=== PATIENT | female | born 1990 | race Caucasian/White ===

== ENCOUNTER 2020-09-20 14:28 | Emergency (ER) | payer OTHER, SELFPAY ==
--- NOTE | 2020-09-20 16:33 | ER ---
Nurse's Notes [facility] Name: Lurdes Hernandez Age: 29 yrs Sex: Female : 1990 Arrival Date: 09/20/2020 Time: 14:32 Bed 27 Private MD: Diagnosis: Acute pharyngitis Presentation: 09/20 14:46 Chief complaint: Patient states: N/V and sore throat started today. Child is also sick ll1 with throat infection right now. No known fever. Coronavirus screen: Client denies travel out of the [place] in the last 14 days. fatigue, nausea, shaking with chills, sore throat, vomiting. Client presents with at least one sign or symptom that may indicate coronavirus-19. Standard/surgical mask placed on the client. Ebola Screen: Patient denies travel to an Ebola-affected area in the 21 days before illness onset. Initial Sepsis Screen: Does the patient meet any 2 criteria? No. Patient's initial sepsis screen is negative. Does the patient have a suspected source of infection? Yes: Other: sore throat. Risk Assessment: Do you want to hurt yourself or someone else? Patient reports no desire to harm self or others. Onset of symptoms was September 20, 2020. 14:46 Method Of Arrival: Ambulatory 1 14:46 Acuity: STERLING 3 ll1 Historical: - Allergies: 14:46 No Known Allergies; ll1 - PMHx: 14:46 None; ll1 - PSHx: 14:46 Tubal ligation; ll1 - Immunization history:: Flu vaccine is up to date. - Social history:: Smoking status: Patient reports the use of cigarette tobacco products, smokes one-half pack cigarettes per day. Screenin:51 Abuse screen: Denies threats or abuse. Denies injuries from another. Nutritional ss screening: No deficits noted. Tuberculosis screening: Never had TB. Fall Risk None identified. Assessment: 16:30 General: Appears in no apparent distress. comfortable, Behavior is calm, cooperative, ss Denies fever, feeling ill, fatigue, chills. Pain: Complains of pain in throat. Neuro: Level of Consciousness is awake, alert, obeys commands, Oriented to person, place, time, situation, Hygiene Assistant are equal bilaterally Speech is normal. Respiratory: Airway is patent Trachea deviated to right Respiratory effort is even, unlabored, Respiratory pattern is regular, symmetrical. GI: Patient currently denies diarrhea, nausea, vomiting. GI: Abdomen is non-distended. EENT: Oral mucosa is moist. Throat is clear. Derm: Skin is intact, is healthy with good turgor, Skin is dry, Skin is pink, warm \T\ dry. normal. Musculoskeletal: Circulation, motion, and sensation intact. Range of motion: intact in all extremities, Swelling absent. 17:04 Reassessment: Patient appears in no apparent distress at this time. Patient and/or ss family updated on plan of care and expected duration. Pain level reassessed. Patient is alert, oriented x 3, equal unlabored respirations, skin warm/dry/pink. Vital Signs: 14:46 BP 116 / 73; Pulse 77; Resp 17; Temp 98.3; Pulse Ox 97% ; Weight 72.57 kg; Height 5 ft. ll1 2 in. (157.48 cm); Pain 4/10; 16:15 BP 102 / 75 LA Sitting (auto/reg); Pulse 81; Pulse Ox 98% on R/A; Pain 4/10; jp3 14:46 Body Mass Index 29.26 (72.57 kg, 157.48 cm) ll1 ED Course: 14:32 Patient arrived in ED. mr 14:45 Arm band placed on. ll1 14:48 Triage completed. ll1 15:52 Strep Sent. ll1 16:05 Jamir Peterson PA is PHCP. [facility] 16:05 Agapito Morrison MD is Attending Physician. [facility] 16:41 Reyna Guillermo RN is Primary Nurse. ss 16:51 Patient has correct armband on for positive identification. Bed in low position. Call ss light in reach. 16:51 No provider procedures requiring assistance completed. Patient did not have IV access ss during this emergency room visit. Administered Medications: 16:51 Drug: Decadron (dexamethasone) 10 mg Route: IM; Site: right gluteus; ss 17:07 Follow up: Response: No adverse reaction; Medication administered at discharge. ss Outcome: 16:30 Discharged to home ambulatory. ss 16:30 Condition: good 16:30 Discharge instructions given to patient, Instructed on discharge instructions, follow up and referral plans. medication usage, Demonstrated understanding of instructions, follow-up care, medications, Prescriptions given X 1. 16:32 Discharge ordered by MD. barillas 17:07 Patient left the ED. Signatures: Jmair Peterson PA PA jmm Rivera, Mary mr Smirch, Shelby, RN RN Osiel Amaya jp3 Raman Ocasio RN RN ll1
--- NOTE | 2020-09-20 16:33 | EDPHYS ---
Physician Documentation [facility] Name: Lurdes Hernandez Age: 29 yrs Sex: Female : 1990 Arrival Date: 09/20/2020 Time: 14:32 Bed 27 Private MD: ED Physician Agapito Morrison HPI: 09/20 14:49 This 29 yrs old Female presents to ER via Ambulatory with complaints of jmm Vomiting, Sore Throat. 14:49 The patient presents to the emergency department with nausea, vomiting. Onset: The jmm symptoms/episode began/occurred gradually. Possible causes: unknown. The symptoms are aggravated by nothing. The symptoms are alleviated by nothing. Associated signs and symptoms: Pertinent positives: vomiting. This is a 29 year old female with no chronic medical conditions that presents to the ED with complaints of sore throat with vomiting. Denies fever, sob, abdominal pain. Patient states her daughter has similar symptoms. . Historical: - Allergies: 14:46 No Known Allergies; ll1 - PMHx: 14:46 None; ll1 - PSHx: 14:46 Tubal ligation; ll1 - Immunization history:: Flu vaccine is up to date. - Social history:: Smoking status: Patient reports the use of cigarette tobacco products, smokes one-half pack cigarettes per day. ROS: 14:49 Constitutional: Negative for fever, chills, and weight loss, Cardiovascular: Negative jmm for chest pain, palpitations, and edema, Respiratory: Negative for shortness of breath, cough, wheezing, and pleuritic chest pain. 14:49 ENT: Positive for sore throat. 14:49 Abdomen/GI: Positive for vomiting. 14:49 All other systems are negative. Exam: 14:49 Constitutional: This is a well developed, well nourished patient who is awake, alert, jmm and in no acute distress. Head/Face: atraumatic. Eyes: EOMI, no conjunctival erythema appreciated ENT: Moist Mucus Membranes Neck: Trachea midline, Supple Chest/axilla: Normal chest wall appearance and motion. Cardiovascular: Regular rate and rhythm. No edema appreciated Respiratory: Normal respirations, no respiratory distress appreciated Abdomen/GI: Non distended, soft Back: Normal ROM Skin: General appearance color normal MS/ Extremity: Moves all extremities, no obvious deformities appreciated, no edema noted to the lower extremities Neuro: Awake and alert, normal gait Psych: Behavior is normal, Mood is normal, Patient is cooperative and pleasant 14:49 ENT: Posterior pharynx: Airway: normal, Uvula: midline, erythema, that is mild. Vital Signs: 14:46 BP 116 / 73; Pulse 77; Resp 17; Temp 98.3; Pulse Ox 97% ; Weight 72.57 kg; Height 5 ft. ll1 2 in. (157.48 cm); Pain 4/10; 16:15 BP 102 / 75 LA Sitting (auto/reg); Pulse 81; Pulse Ox 98% on R/A; Pain 4/10; jp3 14:46 Body Mass Index 29.26 (72.57 kg, 157.48 cm) ll1 MDM: 16:19 Patient medically screened. [facility] 16:32 Data reviewed: vital signs, nurses notes. Counseling: I had a detailed discussion with eran the patient and/or guardian regarding: the historical points, exam findings, and any diagnostic results supporting the discharge/admit diagnosis, lab results, the need for outpatient follow up, to return to the emergency department if symptoms worsen or persist or if there are any questions or concerns that arise at home. 09/20 14:48 Order name: Strep kb 09/20 14:49 Order name: Group A Streptococcus Rapid Sc; Complete Time: 16:06 EDMO 09/20 16:05 Order name: Throat Culture EDMS Administered Medications: 16:51 Drug: Decadron (dexamethasone) 10 mg Route: IM; Site: right gluteus; ss 17:07 Follow up: Response: No adverse reaction; Medication administered at discharge. Disposition: 09/21 06:48 Co-signature as Attending Physician, Agapito Morrison MD I agree with the assessment and kdr plan of care. Disposition: 09/20/20 16:32 Discharged to Home. Impression: Acute pharyngitis. - Condition is Stable. - Discharge Instructions: Nausea and Vomiting, Adult, Pharyngitis. - Prescriptions for Zofran ODT 4 mg Oral tablet,disintegrating - place 1 tablet by TRANSLINGUAL route every 4-6 hours; 20 tablet. - Medication Reconciliation Form, Thank You Letter, Antibiotic Education, Prescription Opioid Use form. - Follow up: Private Physician; When: 2 - 3 days; Reason: Recheck today's complaints, Continuance of care, Re-evaluation by your physician. Signatures: Dispatcher [employer] EDMS Agapito Morrison MD MD kdr Mickail, Joel, PA PA jmm Smirch, Shelby, RN RN ss Raman Ocasio RN RN ll1 Corrections: (The following items were deleted from the chart) 09/20 17:07 16:32 09/20/2020 16:32 Discharged to Home. Impression: Acute pharyngitis. Condition is ss Stable. Forms are Medication Reconciliation Form, Thank You Letter, Antibiotic Education, Prescription Opioid Use. Follow up: Private Physician; When: 2 - 3 days; Reason: Recheck today's complaints, Continuance of care, Re-evaluation by your physician. eran
[2020-09-20] MEDS ORDERED: dexAMETHasone 10 MG/ML VIAL ONE (17:06)
[2020-09-20 17:13] VITALS: TEMP 98.3
[2020-09-20 17:14] VITALS: BP 102/75; O2SAT 98
== END 2020-09-20 17:07 | disposition home or self-care (01) ==
LOC: ER 14:28
DX: J02.9 Acute pharyngitis, unspecified (principal); F17.210 Nicotine dependence, cigarettes, uncomplicated
CPT/HCPCS: 87070; 87081; 96372; 99283; J1100

== ENCOUNTER 2020-10-15 08:09 | Emergency (ER) | payer SELFPAY ==
--- OUTSIDE RECORDS SUMMARY | 2020-10-15 08:11 | XMS REPORT | Continuity of Care Document ---
:1990 Author Organization [facility] t Address [address] [place] [address] Care Team Providers Name Role Phone Sushma REID Attending Clinician Problems This patient has no known problems. Allergies, Adverse Reactions, Alerts This patient has no known allergies or adverse reactions. Medications This patient has no known medications. Procedures This patient has no known procedures. Encounters Start End Encounter Admission Attending Care Care Encounter Source Date/Time Date/Time Type Type Clinicians Facility Department ID 2020-08-30 2020-08-30 Telephone OSMIN Ordaz [id number] 00:00:00 00:00:00 Ольга Trujillo [id number] Wendi [id number] Brett [id number] [facility] [address] [facility] Results This patient has no known results.
[2020-10-15 09:37] LABS: Urine Blood Trace-lysed (Negative); Urine Glucose Negative (Negative); Urine Protein Negative (Negative); Urine Specific Gravity >=1.030 (1.005-1.030)
[2020-10-15 10:12] LABS: Absolute Lymphocytes (CBC) 0.8 K/uL (0.7-4.9); Basophils % 0.6 % (0-1.3); Hematocrit 34.9 % (36.0-45.0); Lymphocytes % 19.6 % (15.3-44.8); MPV 8.4 fL (7.6-11.3); RBC Red Blood Cell Count 4.41 M/uL (3.86-4.86)
[2020-10-15 10:22] LABS: Urine Bacteria <20 /HPF (<20); Urine RBC <5 /HPF (NONE SEEN)
[2020-10-15 10:24] LABS: Urine Specific Gravity/Preg >1.030 (1.005-1.030)
[2020-10-15] MEDS ORDERED: NA CHLORIDE 0.9% 1,000 ML ONE (10:24)
--- NOTE | 2020-10-15 10:28 | RAD REPORT ---
EXAM DESCRIPTION: CT - Abdomen Pelvis W Contrast - 10/15/2020 10:14 am CLINICAL HISTORY: dysuria;Flank pain COMPARISON: No comparisons TECHNIQUE: Biphasic, helical CT imaging of the abdomen and pelvis was performed following 100 ml non -ionic IV contrast. No oral contrast administered. All CT scans are performed using dose optimization technique as appropriate and may include automated exposure control or mA/KV adjustment according to patient size. FINDINGS: No suspicious findings in the lung bases. The liver, spleen, and pancreas show no suspicious findings. Gallbladder and biliary tree are also wi thout suspicious finding. Symmetric renal function is seen with no hydronephrosis or suspicious renal mass. No pyelonephritis o r acute parenchymal process. Urinary bladder is mostly contracted. No gross evidence for cystitis. No bladder stone or intraluminal abnormality seen. No adrenal abnormalities. No uterine abnormality. Both ovaries are well visualized and show no suspicious findings. There is pr obably a small involuting follicle in the right ovary less than a centimeter. No dilated bowel loops or bowel wall thickening. Appendix is normal. No free air or pneumatosis. No a bnormal free fluid or suspicious inflammatory stranding. No mass or bulky lymphadenopathy. A very sm all fat only umbilical hernia present. No suspicious bony findings. IMPRESSION: Contrast enhanced CT abdomen and pelvis showing no acute or emergent finding. Nonacute findings detailed in the body of the report.
[2020-10-15 10:40] LABS: ALT/SGPT 29 U/L (12-78); AST/SGOT 18 U/L (15-37); Albumin 3.8 g/dL (3.4-5.0); Alkaline Phosphatase 92 U/L (45-117); BUN Blood Urea Nitrogen 13 mg/dL (7-18); Bicarbonate 25 mmol/L (21-32); Bilirubin Direct 0.1 mg/dL (0-0.2); Bilirubin Total 0.3 mg/dL (0.2-1.0); Glucose Level 89 mg/dL (74-106); Lipase 104 U/L (73-393); Potassium 3.9 mmol/L (3.5-5.1); Protein, Total 7.5 g/dL (6.4-8.2); Sodium Level 140 mmol/L (136-145)
--- NOTE | 2020-10-15 10:54 | EDPHYS ---
Physician Documentation [facility] Name: Lurdes Hernandez Age: 29 yrs Sex: Female : 1990 Arrival Date: 10/15/2020 Time: 08:19 Bed 14 Private MD: ED Physician Theo Hirsch HPI: 10/15 10:00 This 29 yrs old Female presents to ER via Ambulatory with complaints of pm1 Fever, Urinary Problem. 10:00 The patient presents with urinary symptoms, dysuria. Onset: The symptoms/episode pm1 began/occurred yesterday. Modifying factors: The symptoms are alleviated by nothing, the symptoms are aggravated by urinating. Associated signs and symptoms: Pertinent positives: fever, Pertinent negatives: abdominal pain, flank pain. Severity of symptoms: in the emergency department the symptoms are unchanged. The patient has not experienced similar symptoms in the past. The patient has not recently seen a physician. 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 - Social history:: Smoking status: Patient reports the use of cigarette tobacco products, denies chronic smoking, but will smoke occasionally. ROS: 10:00 Positive for burning with urination, Negative for pelvic pain, flank pain. pm1 10:00 Constitutional: Negative for fever, chills, and weight loss, Eyes: Negative for injury, pain, redness, and discharge, ENT: Negative for injury, pain, and discharge, Cardiovascular: Negative for chest pain, palpitations, and edema, Respiratory: Negative for shortness of breath, cough, wheezing, and pleuritic chest pain, Abdomen/GI: Negative for abdominal pain, nausea, vomiting, diarrhea, and constipation, Back: Negative for injury and pain, MS/Extremity: Negative for injury and deformity, Skin: Negative for injury, rash, and discoloration, Neuro: Negative for headache, weakness, numbness, tingling, and seizure. Exam: 10:00 Constitutional: This is a well developed, well nourished patient who is awake, alert, pm1 and in no acute distress. Head/Face: Normocephalic, atraumatic. 10:00 Eyes: Pupils equal round and reactive to light, extra-ocular motions intact. Lids and lashes normal. Conjunctiva and sclera are non-icteric and not injected. Cornea within normal limits. Periorbital areas with no swelling, redness, or edema. 10:00 Back: No spinal tenderness. No costovertebral tenderness. Full range of motion. 10:00 Skin: Warm, dry with normal turgor. Normal color with no rashes, no lesions, and no evidence of cellulitis. MS/ Extremity: Pulses equal, no cyanosis. Neurovascular intact. Full, normal range of motion. 10:00 ENT: Mouth: Lips: normal, moist, Oral mucosa: normal, pink and intact, moist. 10:00 Cardiovascular: Exam negative for acute changes, Rate: normal, Rhythm: regular, Pulses: no pulse deficits are appreciated. 10:00 Respiratory: Exam negative for acute changes, respiratory distress, shortness of breath. 10:00 Abdomen/GI: Exam negative for acute changes, Inspection: abdomen appears normal, Palpation: abdomen is soft and non-tender, in all quadrants. 10:00 Back: Exam negative for acute changes, pain, is absent, CVA tenderness, is absent. 10:00 Neuro: Exam negative for acute changes, Orientation: is normal, Mentation: is normal, Motor: is normal, moves all fours. Vital Signs: 08:24 BP 106 / 70; Pulse 75; Resp 16 S; Temp 98.7(O); Pulse Ox 100% on R/A; Weight 70.76 kg jd3 (R); Height 5 ft. 2 in. (157.48 cm) (R); Pain 6/10; 09:30 BP 106 / 73; Pulse 78; Resp 20; Pulse Ox 100% on R/A; Pain 7/10; kg 10:00 BP 93 / 75; Pulse 82; Resp 18; Pulse Ox 100% on R/A; kg 11:00 BP 106 / 72; Pulse 77; Resp 18; Pulse Ox 100% on R/A; Pain 6/10; kg 08:24 Body Mass Index 28.53 (70.76 kg, 157.48 cm) jd3 MDM: 09:44 Patient medically screened. pm1 09:50 ED course: Patient refused pain medications. She is currently studying in the room. pm1 10:53 Data reviewed: vital signs. Data interpreted: Pulse oximetry: on room air is 100 %. pm1 Interpretation: normal. Counseling: I had a detailed discussion with the patient and/or guardian regarding: the historical points, exam findings, and any diagnostic results supporting the discharge/admit diagnosis, lab results, radiology results, the need for outpatient follow up, to return to the emergency department if symptoms worsen or persist or if there are any questions or concerns that arise at home. 10/15 09:37 Order name: Urine Dipstick-Ancillary; Complete Time: 09:43 EDMS 10/15 09:42 Order name: Urine --Ancillary (enter results); Complete Time: 10:40 bd 10/15 09:50 Order name: Urine Microscopic Only; Complete Time: 10:40 pm1 10/15 09:50 Order name: Basic Metabolic Panel; Complete Time: 10:50 pm1 10/15 09:50 Order name: CBC with Diff; Complete Time: 10:40 pm1 10/15 09:50 Order name: Hepatic Function; Complete Time: 10:50 pm1 10/15 09:50 Order name: Lipase; Complete Time: 10:50 pm1 10/15 09:50 Order name: IV Saline Lock pm1 10/15 09:50 Order name: Labs collected and sent; Complete Time: 10:01 pm1 10/15 09:50 Order name: CT Abd/Pelvis - IV Contrast Only; Complete Time: 10:40 pm1 10/15 10:24 Order name: Urine Culture EDMS Administered Medications: 10:09 Drug: NS 0.9% 1000 ml Route: IV; Rate: 1000 ml; Site: right antecubital; kg 11:35 Follow up: Response: No adverse reaction; IV Status: Completed infusion; IV Intake: kg 1000ml 12:02 Follow up: Response: No adverse reaction; IV Status: Completed infusion; IV Intake: kg 1000ml 11:34 Drug: TORadol (ketorolac) 30 mg Route: IVP; Site: right antecubital; kg 12:01 Follow up: Response: No adverse reaction; Marked relief of symptoms; Pain is decreased kg 11:35 Drug: Rocephin (cefTRIAXone) 1 grams Route: IV; Rate: calculated rate; Site: right kg antecubital; 12:02 Follow up: Response: No adverse reaction; IV Status: Completed infusion; IV Intake: 10mlkg Disposition: 15:58 Co-signature as Attending Physician, Theo Hirsch MD. rn Disposition: 10/15/20 10:53 Discharged to Home. Impression: Urinary tract infection, site not specified. - Condition is Stable. - Discharge Instructions: Urinary Tract Infection, Adult. - Prescriptions for Tramadol 50 mg Oral Tablet - take 1 tablet by ORAL route every 8 hours as needed; 12 tablet. Bactrim DS 800- 160 mg Oral Tablet - take 1 tablet by ORAL route every 12 hours for 10 days; 20 tablet. Pyridium 200 mg Oral Tablet - take 1 tablet by ORAL route every 8 hours for 3 days; 9 tablet. - Medication Reconciliation Form, Thank You Letter, Antibiotic Education, Prescription Opioid Use form. - Follow up: Emergency Department; When: As needed; Reason: Worsening of condition. Follow up: Private Physician; When: 2 - 3 days; Reason: Recheck today's complaints, Continuance of care, Re-evaluation by your physician. - Problem is new. - Symptoms have improved. Signatures: Dispatcher [employer] EDMS Theo Hirsch MD MD rn Marinas, Patrick, NAHEED CEMENT LOADER pm1 Esteban Keating RN RN jd3 Priscilla Sharma kg Corrections: (The following items were deleted from the chart) 12:02 10:53 10/15/2020 10:53 Discharged to Home. Impression: Urinary tract infection, site kg not specified. Condition is Stable. Forms are Medication Reconciliation Form, Thank You Letter, Antibiotic Education, Prescription Opioid Use. Follow up: Emergency Department; When: As needed; Reason: Worsening of condition. Follow up: Private Physician; When: 2 - 3 days; Reason: Recheck today's complaints, Continuance of care, Re-evaluation by your physician. Problem is new. Symptoms have improved. pm1
--- NOTE | 2020-10-15 10:54 | ER ---
Nurse's Notes [facility] Name: Lurdes Hernandez Age: 29 yrs Sex: Female : 1990 Arrival Date: 10/15/2020 Time: 08:19 Bed 14 Private MD: Diagnosis: Urinary tract infection, site not specified Presentation: 10/15 08:22 Chief complaint: Patient states: "I have been having a fever for the last couple of jd3 days. I think I might have a kidney infection because it hurts to use the restroom.". Coronavirus screen: At this time, the client does not indicate any symptoms associated with coronavirus-19. Ebola Screen: Patient negative for fever greater than or equal to 101.5 degrees Fahrenheit, and additional compatible Ebola Virus Disease symptoms. Initial Sepsis Screen: Does the patient meet any 2 criteria? No. Patient's initial sepsis screen is negative. Does the patient have a suspected source of infection? No. Patient's initial sepsis screen is negative. Risk Assessment: Do you want to hurt yourself or someone else? Patient reports no desire to harm self or others. Onset of symptoms was October 14, 2020. 08:22 Method Of Arrival: Ambulatory jd3 08:22 Acuity: STERLING 3 jd3 Triage Assessment: 09:28 General: Appears in no apparent distress. distressed, comfortable, Behavior is calm, kg cooperative, appropriate for age, quiet. 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 - Social history:: Smoking status: Patient reports the use of cigarette tobacco products, denies chronic smoking, but will smoke occasionally. Screenin:28 Abuse screen: Denies threats or abuse. Nutritional screening: No deficits noted. kg Tuberculosis screening: No symptoms or risk factors identified. Fall Risk None identified. Assessment: 10:10 General: Appears in no apparent distress. distressed, comfortable, Behavior is calm, kg cooperative, appropriate for age, quiet. Pain: Complains of pain in left low back, left mid back, right mid back and right low back Pain currently is 7 out of 10 on a pain scale. at worst was 8 out of 10 on a pain scale. level that patient reports is acceptable is 3 out of 10 on a pain scale. Quality of pain is described as sharp, stabbing, Pain began gradually, 1 day ago. Is intermittent. Neuro: No deficits noted. Level of Consciousness is awake, alert, obeys commands, Oriented to person, place, time, situation. Cardiovascular: No deficits noted. Heart tones S1 S2 Capillary refill < 3 seconds. Respiratory: No deficits noted. Airway is patent Breath sounds are clear bilaterally. GI: No deficits noted. : Reports burning with urination, pain flank(s), with urination, Pain is 7 out of 10 on a pain scale. urgency, urinary frequency, since yesterday. EENT: No deficits noted. Derm: No deficits noted. Musculoskeletal: No deficits noted. Vital Signs: 08:24 BP 106 / 70; Pulse 75; Resp 16 S; Temp 98.7(O); Pulse Ox 100% on R/A; Weight 70.76 kg jd3 (R); Height 5 ft. 2 in. (157.48 cm) (R); Pain 6/10; 09:30 BP 106 / 73; Pulse 78; Resp 20; Pulse Ox 100% on R/A; Pain 7/10; kg 10:00 BP 93 / 75; Pulse 82; Resp 18; Pulse Ox 100% on R/A; kg 11:00 BP 106 / 72; Pulse 77; Resp 18; Pulse Ox 100% on R/A; Pain 6/10; kg 08:24 Body Mass Index 28.53 (70.76 kg, 157.48 cm) jd3 ED Course: 08:19 Patient arrived in ED. as 08:24 Triage completed. jd3 08:27 Arm band placed on. jd3 09:27 Priscilla Sharma is Primary Nurse. kg 09:28 Patient has correct armband on for positive identification. Bed in low position. Call kg light in reach. Side rails up X 1. 09:31 Buzz Landers NP is PHCP. pm1 09:31 Theo Hirsch MD is Attending Physician. pm1 09:50 Inserted saline lock: 20 gauge in right antecubital area, using aseptic technique. kg Blood collected. 10:01 Basic Metabolic Panel Sent. kg 10:01 CBC with Diff Sent. kg 10:01 Lipase Sent. kg 10:14 CT Abd/Pelvis - IV Contrast Only In Process Unspecified. EDMS 11:24 Urine Culture Sent. kg 11:36 No provider procedures requiring assistance completed. IV discontinued, intact, kg bleeding controlled, No redness/swelling at site. Pressure dressing applied. Administered Medications: 10:09 Drug: NS 0.9% 1000 ml Route: IV; Rate: 1000 ml; Site: right antecubital; kg 11:35 Follow up: Response: No adverse reaction; IV Status: Completed infusion; IV Intake: kg 1000ml 12:02 Follow up: Response: No adverse reaction; IV Status: Completed infusion; IV Intake: kg 1000ml 11:34 Drug: TORadol (ketorolac) 30 mg Route: IVP; Site: right antecubital; kg 12:01 Follow up: Response: No adverse reaction; Marked relief of symptoms; Pain is decreased kg 11:35 Drug: Rocephin (cefTRIAXone) 1 grams Route: IV; Rate: calculated rate; Site: right kg antecubital; 12:02 Follow up: Response: No adverse reaction; IV Status: Completed infusion; IV Intake: 10mlkg Intake: 11:35 IV: 1000ml; Total: 1000ml. kg 12:02 IV: 10ml; Total: 1010ml. kg 12:02 IV: 1000ml; Total: 2010ml. kg Outcome: 10:53 Discharge ordered by MD. pm1 11:36 Discharged to home ambulatory. kg 11:36 Condition: good 11:36 Discharge instructions given to patient, Instructed on discharge instructions, follow up and referral plans. Demonstrated understanding of instructions, follow-up care, medications, Prescriptions given X 3. 12:02 Patient left the ED. kg Signatures: Dispatcher [employer] Neli Garcia Patrick, NAHEED INPATIENT PHARMACIST pm1 Esteban Keating RN RN Priscilla Garcia kg
[2020-10-15] MEDS ORDERED: KETOROLAC 30 MG/ML INJ ONE (11:46)
[2020-10-15] MEDS ORDERED: CEFTRIAXONE/SWI 1gm 1 GM/10 ML SYR ONE (11:46)
[2020-10-15 12:30] VITALS: TEMP 98.7; O2SAT 100
[2020-10-15 12:35] VITALS: BP 106/72
== END 2020-10-15 12:02 | disposition home or self-care (01) ==
LOC: ER 08:09
DX: N39.0 Urinary tract infection, site not specified (principal); F17.210 Nicotine dependence, cigarettes, uncomplicated
CPT/HCPCS: 36415; 74177; 80048; 80076; 81003; 81015; 81025; 82565; 83690; 85025; 87086; 87088; 96361; 96365; 96375; 99284; J0696; J7030; Q9967

== ENCOUNTER 2021-03-19 12:29 | Emergency (ER) | payer SELFPAY ==
[2021-03-19] MEDS ORDERED: CEFTRIAXONE 1000 MG/VIAL ONE (13:51)
[2021-03-19] MEDS ORDERED: NA CHLORIDE 0.9% 1,000 ML ONE (13:51)
[2021-03-19] MEDS ORDERED: NA CHLORIDE 0.9% 100 ML ONE (13:51)
[2021-03-19 14:07] LABS: Absolute Lymphocytes (CBC) 1.3 K/uL (0.7-4.9); Basophils % 0.4 % (0-1.3); Hematocrit 36.6 % (36.0-45.0); MPV 7.9 fL (7.6-11.3); RBC Red Blood Cell Count 4.52 M/uL (3.86-4.86)
[2021-03-19 14:18] LABS: ALT/SGPT 23 U/L (12-78); AST/SGOT 12 U/L (15-37); Albumin 3.8 g/dL (3.4-5.0); Alkaline Phosphatase 82 U/L (45-117); BUN Blood Urea Nitrogen 9 mg/dL (7-18); Bicarbonate 24 mmol/L (21-32); Bilirubin Direct < 0.1 mg/dL (0-0.2); Bilirubin Total 0.3 mg/dL (0.2-1.0); Glucose Level 112 mg/dL (74-106); Lipase 101 U/L (73-393); Potassium 3.5 mmol/L (3.5-5.1); Protein, Total 7.9 g/dL (6.4-8.2); Sodium Level 139 mmol/L (136-145)
[2021-03-19 14:30] LABS: Urine Specific Gravity/Preg 1.025 (1.005-1.030)
--- NOTE | 2021-03-19 16:35 | RAD REPORT ---
EXAM DESCRIPTION: CTChest Abdomen Pelvis W Cont - 03/19/2021 4:26 pm CLINICAL HISTORY: PAIN COMPARISON: No comparisons TECHNIQUE: CT of the chest, abdomen, and pelvis was performed. All CT scans are performed using dose optimization technique as appropriate and may include automated exposure control or mA/KV adjustment according to patient size. FINDINGS: Thorax: Chest Wall: No abnormal mass Lungs: No acute abnormality. Pleura: No effusions or pneumothorax. [place]/Mediastinum: No lymphadenopathy. Aorta/Pulmonary Arteries: Unremarkable Heart: Normal size. Abdomen/Pelvis: Liver: No acute abnormality or suspicious lesions. Biliary: No biliary ductal dilatation. Stomach: No significant focal abnormality. Duodenum: No significant focal abnormality. Pancreas: No significant abnormality. Spleen: No significant abnormality. Adrenal: No suspicious lesions. Kidney/ureter: No hydronephrosis. No renal calculi. Retroperitoneum: No retroperitoneal adenopathy. Vascular: No aneurysm. Bowel: No significant focal abnormality. Normal appendix. Peritoneum: No ascites or free air. Small fat containing umbilical hernia . Bladder: Grossly unremarkable. Reproductive: No adnexal masses. Bones: No acute fracture. Other: n/a IMPRESSION: No acute findings within the chest, abdomen, or pelvis.
--- NOTE | 2021-03-19 18:00 | ER ---
Nurse's Notes [facility] Name: Lurdes Hernandez Age: 30 yrs Sex: Female : 1990 Arrival Date: 03/19/2021 Time: 12:31 Bed 20 Private MD: Diagnosis: Fever, unspecified;UTI/ Urinary tract infection, site not specified Presentation: 03/19 12:36 Chief complaint: Patient states: Fever and NGUYỄN x 1 week. L flank pain that began today. ss Negative Covid test 4 days ago. Coronavirus screen: fever, headache, Client presents with at least one sign or symptom that may indicate coronavirus-19. Standard/surgical mask placed on the client. Provider contacted for isolation considerations. Ebola Screen: Patient denies exposure to infectious person. Patient denies travel to an Ebola-affected area in the 21 days before illness onset. Initial Sepsis Screen: Does the patient meet any 2 criteria? No. Patient's initial sepsis screen is negative. Does the patient have a suspected source of infection? No. Patient's initial sepsis screen is negative. Risk Assessment: Do you want to hurt yourself or someone else? Patient reports no desire to harm self or others. Onset of symptoms was March 12, 2021. 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 - Social history:: Smoking status: Patient denies any tobacco usage or history of. Screenin:40 Abuse screen: Denies threats or abuse. Nutritional screening: No deficits noted. ap3 Tuberculosis screening: No symptoms or risk factors identified. Fall Risk None identified. Assessment: 12:52 General: Appears in no apparent distress. Behavior is calm, cooperative, appropriate ap3 for age, Reports fever for > 3 days, feeling ill for > 3 days. Pain: Denies pain. Neuro: Level of Consciousness is awake, alert, obeys commands, Oriented to person, place, time, situation, Appropriate for age Moves all extremities. Gait is steady, Speech is normal. Cardiovascular: Capillary refill < 3 seconds Patient's skin is warm and dry. Respiratory: Airway is patent Respiratory effort is even, unlabored, Respiratory pattern is regular, symmetrical, Breath sounds are clear. GI:. GI: No signs and/or symptoms were reported involving the gastrointestinal system. : Reports pain in left flank(s), since this morning. 14:16 Reassessment: Patient and/or family updated on plan of care and expected duration. Pain ap3 level reassessed. Patient is alert, oriented x 3, equal unlabored respirations, skin warm/dry/pink. 16:18 Reassessment: Patient and/or family updated on plan of care and expected duration. Pain ap3 level reassessed. Patient is alert, oriented x 3, equal unlabored respirations, skin warm/dry/pink. Vital Signs: 12:36 BP 118 / 78; Pulse 128; Resp 16; Temp 100.4(TE); Pulse Ox 99% on R/A; Weight 72.12 kg; ss Height 5 ft. 2 in. (157.48 cm); Pain 8/10; 12:54 BP 99 / 67 LA (auto/lg); Pulse 107; Resp 19; Pulse Ox 100% on R/A; ap3 14:15 BP 96 / 63; Pulse 90; Pulse Ox 100% on R/A; ap3 14:50 BP 109 / 69; Pulse 93; Pulse Ox 100% on R/A; ap3 16:18 BP 105 / 88; Pulse 87; Temp 99.3; Pulse Ox 100% ; ap3 17:48 BP 101 / 72; Pulse 96; Pulse Ox 99% on R/A; ap3 12:36 Body Mass Index 29.08 (72.12 kg, 157.48 cm) ED Course: 12:31 Patient arrived in ED. as 12:38 Triage completed. ss 12:38 Arm band placed on left wrist. ss 12:39 Thalia Hernandez, VARGAS is Primary Nurse. ap3 12:40 Patient has correct armband on for positive identification. Bed in low position. Call ap3 light in reach. Side rails up X2. Pulse ox on. NIBP on. Door closed. Noise minimized. 12:47 Jamir Peterson PA is PHCP. [facility] 12:47 Agapito Morrison MD is Attending Physician. [facility] 13:45 Initial lab(s) drawn, by me, sent to lab. First set of blood cultures drawn. Inserted em1 saline lock: in right antecubital area, using aseptic technique. Blood collected. 13:45 Urine collected: clean catch specimen, clear. em1 14:00 Second set of blood cultures drawn by me. em1 14:21 SARS-COV-2 RT PCR Sent. em1 14:22 Urine Culture Sent. em1 16:26 Chest Abdomen Pelvis W Cont In Process Unspecified. EDMS 18:08 No provider procedures requiring assistance completed. IV discontinued, intact, ap3 bleeding controlled, No redness/swelling at site. Pressure dressing applied. Administered Medications: 14:15 Drug: NS 0.9% 1000 ml Route: IV; Rate: 1 bolus; Site: left antecubital; ap3 14:15 Drug: Rocephin (cefTRIAXone) 1 grams Route: IV; Rate: calculated rate; Site: left ap3 antecubital; Outcome: 17:59 Discharge ordered by . [facility] 18:08 Discharged to home ambulatory. ap3 18:08 Condition: good 18:08 Discharge instructions given to patient, Instructed on discharge instructions, follow up and referral plans. medication usage, Demonstrated understanding of instructions, follow-up care, medications, Prescriptions given X 2. 18:08 Patient left the ED. ap3 Signatures: Dispatcher [employer] EDMS Jamir Peterson PA PA jmm Martinez, Amelia as Martinez, Eric em1 Reyna Guillermo RN RN ss Prokisch, Amanda, RN RN ap3 Corrections: (The following items were deleted from the chart) 12:43 12:43 General: ap3 ap3 16:23 15:47 In radiology for Chest Abdomen Pelvis W Con+CT.RAD.BRZ. EDMS EDMS
--- NOTE | 2021-03-19 18:00 | EDPHYS ---
Physician Documentation [facility] Name: Lurdes Hernandez Age: 30 yrs Sex: Female : 1990 Arrival Date: 03/19/2021 Time: 12:31 Bed 20 Private MD: ED Physician Agapito Morrison HPI: 03/19 12:52 This 30 yrs old Female presents to ER via Ambulatory with complaints of Fever.jmm 12:52 Onset: The symptoms/episode began/occurred gradually. Modifying factors: there are no [facility] obvious modifying factors. Associated signs and symptoms: Pertinent positives: cough. Patient complains of fever, body aches with a mild cough also complains of some left-sided back pain. Denies vomiting or diarrhea. 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 - Social history:: Smoking status: Patient denies any tobacco usage or history of. ROS: 12:52 Constitutional: Positive for body aches, chills, fever. jmm 12:52 Cardiovascular: Negative for chest pain. 12:52 Respiratory: Positive for cough. 12:52 All other systems are negative. Exam: 12:52 Constitutional: This is a well developed, well nourished patient who is awake, alert, jmm and in no acute distress. Head/Face: atraumatic. Eyes: EOMI, no conjunctival erythema appreciated ENT: Moist Mucus Membranes Neck: Trachea midline, Supple Chest/axilla: Normal chest wall appearance and motion. Cardiovascular: Regular rate and rhythm. No edema appreciated Respiratory: Normal respirations, no respiratory distress appreciated Abdomen/GI: Non distended, soft Back: Normal ROM Skin: General appearance color normal MS/ Extremity: Moves all extremities, no obvious deformities appreciated, no edema noted to the lower extremities Neuro: Awake and alert, normal gait Psych: Behavior is normal, Mood is normal, Patient is cooperative and pleasant Vital Signs: 12:36 BP 118 / 78; Pulse 128; Resp 16; Temp 100.4(TE); Pulse Ox 99% on R/A; Weight 72.12 kg; ss Height 5 ft. 2 in. (157.48 cm); Pain 8/10; 12:54 BP 99 / 67 LA (auto/lg); Pulse 107; Resp 19; Pulse Ox 100% on R/A; ap3 14:15 BP 96 / 63; Pulse 90; Pulse Ox 100% on R/A; ap3 14:50 BP 109 / 69; Pulse 93; Pulse Ox 100% on R/A; ap3 16:18 BP 105 / 88; Pulse 87; Temp 99.3; Pulse Ox 100% ; ap3 17:48 BP 101 / 72; Pulse 96; Pulse Ox 99% on R/A; ap3 12:36 Body Mass Index 29.08 (72.12 kg, 157.48 cm) ss MDM: 13:00 Patient medically screened. [facility] 17:56 Data reviewed: vital signs, nurses notes. Counseling: I had a detailed discussion with elisa the patient and/or guardian regarding: the historical points, exam findings, and any diagnostic results supporting the discharge/admit diagnosis, lab results, radiology results, the need for outpatient follow up. ED course: Patient is alert and nontoxic in appearance in the ED. No signs of respiratory distress. CT was negative for an acute process. Patient advised to return to the ED if worsening symptoms develop.. 03/19 12:51 Order name: Urine --Ancillary (enter results); Complete Time: 15:00 03/19 13:20 Order name: Urine Culture [facility] 03/19 13:20 Order name: Basic Metabolic Panel [facility] 03/19 13:20 Order name: CBC with Diff [facility] 03/19 13:20 Order name: Hepatic Function; Complete Time: 14:20 [facility] 03/19 13:20 Order name: Lipase; Complete Time: 14:20 [facility] 03/19 13:20 Order name: Procalcitonin; Complete Time: 15:00 [facility] 03/19 13:20 Order name: Lactate; Complete Time: 14:18 [facility] 03/19 13:20 Order name: Blood Culture Adult (2) [facility] 03/19 13:20 Order name: Urine Culture [facility] 03/19 13:20 Order name: Basic Metabolic Panel; Complete Time: 14:20 [facility] 03/19 13:20 Order name: CBC with Automated Diff; Complete Time: 14:11 [facility]ID 03/19 14:16 Order name: SARS-COV-2 RT PCR; Complete Time: 15:17 [facility] 03/19 13:20 Order name: Urine Dipstick-Ancillary (obtain specimen); Complete Time: 14:15 [facility] 03/19 13:20 Order name: IV Saline Lock; Complete Time: 14:15 [facility] 03/19 13:20 Order name: Labs collected and sent; Complete Time: 14:15 [facility] 03/19 16:24 Order name: Chest Abdomen Pelvis W Cont; Complete Time: 17:02 EDMS Administered Medications: 14:15 Drug: NS 0.9% 1000 ml Route: IV; Rate: 1 bolus; Site: left antecubital; ap3 14:15 Drug: Rocephin (cefTRIAXone) 1 grams Route: IV; Rate: calculated rate; Site: left ap3 antecubital; Disposition: 22:55 Co-signature as Attending Physician, Agapito Morrison MD I agree with the assessment and kdr plan of care. Disposition Summary: 03/19/21 17:59 Discharge Ordered Location: Home [facility] Condition: Stable [facility] Diagnosis - Fever, unspecified jm - UTI/ Urinary tract infection, site not specified [facility] Followup: [facility] - With: Private Physician - When: 2 - 3 days - Reason: Recheck today's complaints, Continuance of care, Re-evaluation by your physician Discharge Instructions: - Discharge Summary Sheet [facility] - Urinary Tract Infection, Adult [facility] Forms: - Medication Reconciliation Form [facility] - Thank You Letter [facility] - Antibiotic Education [facility] - Prescription Opioid Use [facility] Prescriptions: - Cephalexin 500 mg Oral Capsule - take 1 capsule by ORAL route every 8 hours for 10 days; 30 capsule; Refills: 0, [facility] Product Selection Permitted Signatures: Dispatcher [employer] EDID Agapito Morrison MD MD kdr Mickail, Joel, PA PA [facility] Reyna Guillermo RN RN ss Prokisch, Amanda, RN RN ap3 Corrections: (The following items were deleted from the chart) 14:17 13:40 CORONAVIRUS+MR.LAB.BRZ ordered. EDMS EDMS 16:23 15:19 Chest Abdomen Pelvis W Con+CT.RAD.BRZ ordered. EDMS EDMS
[2021-03-19 18:22] VITALS: TEMP 99.3
[2021-03-19 18:23] VITALS: BP 101/72; O2SAT 99
== END 2021-03-19 18:08 | disposition home or self-care (01) ==
LOC: ER 12:29
DX: N39.0 Urinary tract infection, site not specified (principal); Z20.822 Contact with and (suspected) exposure to COVID-19
CPT/HCPCS: 36415; 71260; 74177; 80048; 80076; 81025; 83605; 83690; 84145; 85025; 87040; 87086; 87088; J7030; Q9967; U0003